=== PATIENT | female | born 1935 | race Caucasian/White ===

== ENCOUNTER → 2018-03-06 | Outpatient (CLI) | payer MEDICARE ==
--- NOTE | 2018-03-06 13:53 | RAD ---
EXAM: Chest, 2 views. HISTORY: Cough. COMPARISON: None. FINDINGS: 2 views of the chest are obtained. There is hyperinflation likely due to emphysema. There is suspected bilateral basilar atelectasis and right apical pleural parenchymal scarring. The heart is normal in size. IMPRESSION: 1. Hyperinflation suggesting emphysema. 2. Suspected bilateral basilar atelectasis and right apical scarring. Electronically signed by: Gem Diaz MD (03/06/2018 1:49 PM) [place] [id number]
== END | disposition home or self-care (01) ==
LOC: DXRAD 10:05
PROVIDERS: ATTEND Neuromusculoskeletal Medicine & OMM
DX: J44.1 Chronic obstructive pulmonary disease with (acute) exacerbation (principal); R05 Cough; R53.83 Other fatigue
CPT/HCPCS: 71046

== ENCOUNTER → 2018-10-23 | Outpatient (CLI) | payer MEDICARE ==
--- NOTE | 2018-10-23 16:17 | RAD ---
Right lower extremity venous doppler ultrasound History: Right leg pain and swelling Comparison: None Findings: Multiple grayscale, color, and duplex spectral analysis sonographic images were acquired of the right lower extremity veins to evaluate for the presence of DVT. There is normal phasicity. Normal compression, color-flow, and augmentation is demonstrated from the right common femoral to the popliteal veins. There is normal color flow of the proximal greater saphenous and profunda femoris veins. There is normal color flow of segments of the calf veins. Impression: 1. There is no evidence of deep venous thrombosis from the right common femoral to the popliteal veins. Electronically signed by: Kvng Santos MD (10/23/2018 4:14 PM) [id number]
== END | disposition home or self-care (01) ==
LOC: US 15:42
PROVIDERS: ATTEND Physician Assistant Medical
DX: M79.604 Pain in right leg (principal); R22.41 Localized swelling, mass and lump, right lower limb
CPT/HCPCS: 93971

== ENCOUNTER → 2019-06-25 | Outpatient (CLI) | payer MEDICARE ==
[2019-06-25 10:38] LABS: BASO # 0.1 x10^3/uL (0.0-0.2); BASO % 1 % (0-3); EOS # 0.1 x10^3/uL (0.0-0.7); EOS % 2 % (0-3); HEMATOCRIT 41.3 % (36.0-47.0); HEMOGLOBIN 13.6 g/dL (12.0-15.5); LYMPH # 1.2 x10^3/uL (1.0-4.8); LYMPH % 17 % (24-48); MEAN CORPUSCULAR HEMOGLOBIN 31 pg (25-35); MEAN CORPUSCULAR HGB CONC 33 g/dL (31-37); MEAN CORPUSCULAR VOLUME 93 fL (79-100); MONO # 0.7 x10^3/uL (0.0-1.1); MONO % 10 % (0-9); NEUT # 4.9 x10^3uL (1.8-7.7); NEUT % 71 % (31-73); PLATELET COUNT 267 x10^3/uL (140-400); RED BLOOD COUNT 4.44 x10^6/uL (3.50-5.40); RED CELL DISTRIBUTION WIDTH 13.6 % (11.5-14.5)
[2019-06-25 10:46] LABS: BILIRUBIN,URINE NEG (NEG); CLARITY,URINE HAZY; COLOR,URINE YELLOW; GLUCOSE,URINE NEG (NEG)
[2019-06-25 10:47] LABS: BACTERIA,URINE MOD /HPF (0-FEW); NITRITE,URINE NEG (NEG); SQUAMOUS EPITHELIAL CELL,UR MANY /LPF; UROBILINOGEN,URINE 0.2 mg/dL (0.2 mg/dL); YEAST,URINE PRESENT /HPF
[2019-06-25 10:48] LABS: HYALINE CASTS, URINE OCC /HPF
[2019-06-25 10:49] LABS: ALBUMIN 4.2 g/dL (3.4-5.0); ALBUMIN/GLOBULIN RATIO 1.2 (1.0-1.7); CALCIUM 9.4 mg/dL (8.5-10.1); CREATININE 0.8 mg/dL (0.6-1.0); GFR 68.7; POTASSIUM 3.8 mmol/L (3.5-5.1); TOTAL BILIRUBIN 0.8 mg/dL (0.2-1.0); TOTAL PROTEIN 7.6 g/dL (6.4-8.2)
[2019-06-25 14:06] LABS: FREE T4 1.12 ng/dL (0.76-1.46); THYROID STIM HORMONE (TSH) 0.652 uIU/mL (0.358-3.740)
== END | disposition home or self-care (01) ==
LOC: LAB 08:57
PROVIDERS: ATTEND Physician Assistant Medical
DX: I10 Essential (primary) hypertension (principal); E78.5 Hyperlipidemia, unspecified; R53.83 Other fatigue
CPT/HCPCS: 36415; 80053; 80061; 81001; 82607; 84439; 84443; 84481; 85025; 87086

== ENCOUNTER 2020-04-27 06:10 | Emergency (ER) | payer MEDICARE ==
[~2020-04-27] VITALS: Ht 157.5 cm; Wt 43.0 kg
[2020-04-27 07:10] VITALS: BP 154/82
--- NOTE | 2020-04-27 07:10 | PHYS DOC ---
Past History Past Medical History: COPD General Adult EDM: Chief Complaint: ANXIETY/PANIC ATTACK HPI: HPI: Patient is a 85-year-old female who presented to ER today for evaluation of not able to sleep for 3 days, she feels like she having trouble breathing, she also have a dry cough which is baseline because she is a smoker and she has COPD. Patient not on any oxygen. Patient denies any fever, no chest pain, no abdominal pain, no nausea vomiting, no headache, no neck pain, no sore throat or nasal congestion. Patient wants to be tested for COVID-19 infection because she will not go to her daughter Thanksgiving dinner if she had Covid. Patient denies being exposed to anybody who tested positive COVID-19. Review of Systems: Review of Systems: Constitutional: Denies fever or chills Eyes: Denies change in visual acuity HENT: Denies nasal congestion or sore throat Respiratory: Positive for cough and trouble breathing. Cardiovascular: Denies chest pain or edema GI: Denies abdominal pain, nausea, vomiting, bloody stools or diarrhea : Denies dysuria Musculoskeletal: Denies back pain or joint pain Integument: Denies rash Neurologic: Denies headache, focal weakness or sensory changes Endocrine: Denies polyuria or polydipsia Lymphatic: Denies swollen glands Psychiatric: Denies depression or anxiety Physical Exam: PE: Constitutional: Well developed, well nourished, no acute distress, non-toxic appearance. [] HENT: Normocephalic, atraumatic, bilateral external ears normal, oropharynx moist, no oral exudates, nose normal. [] Eyes: PERRLA, EOMI, conjunctiva normal, no discharge. [] Neck: Normal range of motion, no tenderness, supple, no stridor. [] Cardiovascular:Heart rate regular rhythm, no murmur [] Lungs & Thorax: Bilateral breath sounds clear to auscultation [] Abdomen: Bowel sounds normal, soft, no tenderness, no masses, no pulsatile masses. [] Skin: Warm, dry, no erythema, no rash. [] Back: No tenderness, no CVA tenderness. [] Extremities: No tenderness, no cyanosis, no clubbing, ROM intact, no edema. [] Neurologic: Alert and oriented X 3, normal motor function, normal sensory function, no focal deficits noted. [] Psychologic: Affect normal, judgement normal, mood normal. [] EKG: EKG: EKG was done at 644, heart rate 90 bpm, sinus rhythm, no ST segment elevation. [] Radiology/Procedures: Radiology/Procedures: Chest x-ray was read by this physician, no infiltration, no pneumothorax, no acute process. Heart Score: Risk Factors: Risk Factors: DM, Current or recent (<one month) smoker, HTN, HLP, family history of CAD, obesity. Risk Scores: Score 0 - 3: 2.5% MACE over next 6 weeks - Discharge Home Score 4 - 6: 20.3% MACE over next 6 weeks - Admit for Clinical Observation Score 7 - 10: 72.7% MACE over next 6 weeks - Early Invasive Strategies Course & Med Decision Making: Course & Med Decision Making Pertinent Labs and Imaging studies reviewed. (See chart for details) Patient is an 85-year-old female who presented to ER due to anxiety, having trouble breathing. Patient was in no acute distress, her lung sounds is clear, her saturation on room air is 97 to 98%. Chest x-ray did not show any acute process. EKG did not show any acute problem. Patient will be discharged home. She will need to follow-up with her family physician for outpatient evaluation of her insomnia. Nalini Disclaimer: Nalini Disclaimer: This electronic medical record was generated, in whole or in part, using a voice recognition dictation system. Departure Departure: Impression: Primary Impression: Anxiety Additional Impression: Insomnia Disposition: 01 DC HOME SELF CARE/HOMELESS Condition: STABLE Referrals: ROSALIE HOLLIS (PCP) follow up with your doctor next week. Patient Instructions: Anxiety and Panic Attacks, Insomnia Additional Instructions: Please follow-up with your family physician for evaluation and treatment in outpatient setting. You were tested for COVID-19 today, the result will not be available for 3 days. Someone will call you if your test comes back positive. ISABEL VAZQUEZ DO Apr 27, 2020 07:09
--- NOTE | 2020-04-27 07:12 | RAD ---
CHEST AP ONLY INDICATION: cough, soa / Spl. Instructions: / History: . COMPARISON STUDY: 03/06/2018. FINDINGS: Lungs: Normal lung volume. No pulmonary mass or consolidation. The tracheobronchial tree and hilar structures are normal. Pleura: No pleural effusion or pneumothorax. Heart and Mediastinum: The cardiomediastinal silhouette is normal. Atherosclerosis of the thoracic aorta. IMPRESSION: No acute cardiopulmonary process. Electronically signed by: Kvng Walls MD (04/27/2020 7:09 AM) [id number]
--- NOTE | 2020-04-27 13:44 | EKG ---
[facility] ED [facility] [address] [place] [id number] Test Date: 2020-04-27 Test Time: 06:44:12 Pat Name: LEONARD SALCEDO Department: Room: Gender: F Dental Chairside Assistant: : [id number] Requested By: ISABEL VAZQUEZ Order Number: [id number] Reading MD: Measurements Intervals [place] Rate: 90 P: 90 CT: 162 QRS: 120 QRSD: 88 T: 129 QT: 360 QTc: 444 Interpretive Statements SINUS RHYTHM ABNORMAL RIGHT AXIS DEVIATION T ABNORMALITY IN HIGH LATERAL LEADS ABNORMAL ECG RI6.02 No previous ECG available for comparison
== END 2020-04-27 07:20 | disposition home or self-care (01) ==
LOC: ER 06:10
DX: F41.9 Anxiety disorder, unspecified (principal); G47.00 Insomnia, unspecified; J44.9 Chronic obstructive pulmonary disease, unspecified; Z20.828 Contact with and (suspected) exposure to other viral communicable diseases
CPT/HCPCS: 71045; 93005; 99285; C9803; U0003

== ENCOUNTER → 2020-05-07 | Outpatient (CLI) | payer MEDICARE ==
[2020-04-27 07:10] VITALS: BP 154/82
--- NOTE | 2020-05-07 10:43 | RAD ---
EXAM: Bilateral lower extremity venous Doppler. HISTORY: Bilateral lower extremity pain/swelling. COMPARISON: None. FINDINGS: Grayscale and Doppler analysis of the both lower extremity deep venous systems was performed with graded compression and augmentation. The common femoral, greater saphenous, superficial femoral, popliteal and calf veins were assessed. There is no evidence of deep venous thrombosis. IMPRESSION: 1. No evidence of deep venous thrombosis. Electronically signed by: Darshana Oconnor MD (05/07/2020 10:32 AM) [facility]
== END ==
LOC: US 09:43
PROVIDERS: ATTEND Physician Assistant Medical
DX: R22.43 Localized swelling, mass and lump, lower limb, bilateral (principal)
CPT/HCPCS: 93970

== ENCOUNTER → 2021-05-13 | Outpatient (CLI) | payer MEDICARE ==
[2021-05-13 08:38] LABS: ALBUMIN 3.9 g/dL (3.4-5.0); ALBUMIN/GLOBULIN RATIO 1.2 (1.0-1.7); CALCIUM 8.8 mg/dL (8.5-10.1); CREATININE 0.7 mg/dL (0.6-1.0); GFR 79.7; POTASSIUM 3.7 mmol/L (3.5-5.1); TOTAL BILIRUBIN 0.7 mg/dL (0.2-1.0); TOTAL PROTEIN 7.1 g/dL (6.4-8.2)
== END ==
LOC: LAB 07:53
PROVIDERS: ATTEND Nurse Practitioner
DX: E78.5 Hyperlipidemia, unspecified (principal)
CPT/HCPCS: 36415; 80053; 80061